=== PATIENT | female | born 1950 | race Caucasian/White ===

== ENCOUNTER → 2017-06-23 | Outpatient (CLI) | payer MEDICARE, OTHER | END | disposition home or self-care (01) | LOC: GMAL 10:31 | PROVIDERS: ATTEND Family Medicine | DX: D51.3 Other dietary vitamin B12 deficiency anemia (principal); E55.9 Vitamin D deficiency, unspecified ==

== ENCOUNTER → 2017-10-26 | Outpatient (CLI) | payer MEDICARE, OTHER | END | disposition home or self-care (01) | LOC: GMAL 11:43 | PROVIDERS: ATTEND Family Medicine | DX: L40.52 Psoriatic arthritis mutilans (principal) ==

== ENCOUNTER → 2017-12-23 | Outpatient (CLI) | payer MEDICARE, OTHER | LOC: GMAL 11:21 | PROVIDERS: ATTEND Family Medicine | DX: D51.3 Other dietary vitamin B12 deficiency anemia (principal); D53.9 Nutritional anemia, unspecified ==

== ENCOUNTER → 2018-01-18 | Outpatient (CLI) | payer MEDICARE, OTHER | LOC: GMAL 11:16 | PROVIDERS: ATTEND Family Medicine | DX: D53.9 Nutritional anemia, unspecified (principal) ==

== ENCOUNTER → 2018-02-20 | Outpatient (CLI) | payer MEDICARE, OTHER ==
--- NOTE | 2018-02-21 11:06 | MAM ---
EXAM DESCRIPTION: 3D Screening BILATERAL : Digital Mammography. CLINICAL HISTORY: 67 years Female ANNUAL SCREENING . No complaints. No family history of breast cancer. Postmenopausal. No HRT. COMPARISON: 2-D digital screening bilateral study 10/20/2016.. Report from prior examination also reviewed. TECHNIQUE: Bilateral CC and MLO projection full-field images, 3-D tomosynthesis digital mammographic technique. Also bilateral synthesized CC/ MLO full-field images. CAD not utilized. FINDINGS: The breast parenchymal density pattern is: Scattered areas of fibroglandular density. No skin thickening or nipple retraction bilateral solitary microcalcifications. Skin mole on the anterior medial left breast. No focal, stellate mass or density, focal asymmetry , and no suspicious microcalcifications bilaterally. Stable mammograms compared to prior study, taking into account differences in mammographic technique IMPRESSION: BI-RADS CATEGORY: 2 - BENIGN FINDINGS. FOLLOW UP: Routine digital bilateral screening, one year interval from February 2018. Written communication explaining the IMPRESSION and follow-up, will be mailed to the patient and referring health care provider. According to the [employer], yearly mammograms are recommended starting at age 40 and continuing as long as a woman is in good health. Any breast change noted on a breast self-exam should be reported promptly to the patient's healthcare provider. Breast MRI is recommended for women with an approximately 20-25% or greater lifetime risk of breast cancer, including women with a strong family history of breast or ovarian cancer and women who have been treated for Hodgkin's disease. A negative mammographic report should not delay tissue diagnosis in patients with significant clinical history or physical findings. Extremely dense breast tissue limits the sensitivity of digital mammography. Electronically signed by: Aniceto Galdamez MD 02/21/2018 11:05 AM CDT
== END | disposition home or self-care (01) ==
LOC: MAMMO 09:30
PROVIDERS: ATTEND Family Medicine
DX: Z12.31 Encounter for screening mammogram for malignant neoplasm of breast (principal)

== ENCOUNTER → 2018-05-18 | Outpatient (CLI) | payer MEDICARE, OTHER | LOC: GMAL 10:25 | PROVIDERS: ATTEND Family Medicine | DX: E55.9 Vitamin D deficiency, unspecified (principal) ==

== ENCOUNTER → 2018-08-18 | Outpatient (CLI) | payer MEDICARE, OTHER | LOC: GMAL 11:58 | PROVIDERS: ATTEND Family Medicine | DX: D51.3 Other dietary vitamin B12 deficiency anemia (principal); E55.9 Vitamin D deficiency, unspecified ==

== ENCOUNTER → 2019-02-28 | Outpatient (CLI) | payer MEDICARE, OTHER ==
--- NOTE | 2019-02-28 17:31 | MRI ---
EXAM DESCRIPTION: Brain w/wo Contrast: Magnetic Resonance Imaging. CLINICAL HISTORY: 68 years Female Delirium due to known physiological condition COMPARISON: None. TECHNIQUE: Multiplanar, high-field MRI, multiple conventional sequences, without and with gadolinium IV contrast. No adverse reactions. Multiple axial diffusion sequences. FINDINGS: Small foci of hyperintense FLAIR and T2-weighted signal in the periventricular white matter laterally abutting the frontal horns of the lateral ventricles. Also anterior and posterior left basal ganglia. Minimal foci in the remaining monreo radiata bilaterally also bilateral centrum semiovale bilaterally. No hemorrhage, mass effect, edema, abnormal contrast enhancement, or diffusion restriction. Normal signal in the right basal ganglia. No hemorrhage, no cerebral edema, no mass-effect. No diffusion restriction. Normal contrast enhancement. Normal signal in the brainstem and cerebellar hemispheres. No hemorrhage, no cerebral edema, no diffusion restriction. Normal contrast enhancement. Concordance of the diffusion and non-diffusion sequences with no evidence of acute or subacute infarction. Cortical sulci, ventricles, and other CSF spaces, and the subdural spaces are normally configured for the patient's age. No effacement or displacement. No midline shift. No extra-axial hemorrhage. Normal contrast enhancement. Normal flow signal void in the major vessels of the [place], and the venous sinuses. IACs are symmetric bilaterally. Normal signal in the bilateral mastoid air cells. No mass effect in the bilateral Cerebellopontine angles. Normal contrast enhancement. Pituitary gland occupies most of the sella. Normal contrast enhancement. Base of the cerebellar tonsils is at the level of the foramen magnum. No periosteal thickening in the paranasal sinuses. Right septal deviation. The bony calvarium is intact. IMPRESSION: 1. Findings in the periventricular white matter, monroe radiata, centrum semiovale, and left basal ganglia most likely related to aging or cerebral microvascular disease. No mass effect hemorrhage edema or abnormal contrast enhancement. Normal noncontrast MRI diffusion scan with no evidence of acute or subacute infarction or significant ischemia. 2. Minimal paranasal sinus disease. Electronically signed by: Aniceto Galdamez MD 02/28/2019 5:27 PM CDT
--- NOTE | 2019-03-02 13:58 | MAM ---
EXAM DESCRIPTION: 3D Screening BILATERAL : Digital Mammography. CLINICAL HISTORY: 68 years Female ANNUAL SCREENING . No complaints. No personal or family history of breast cancer. Childbirth. Postmenopausal 33 years. No HRT. Lifetime risk of developing breast cancer (Tyrer-Cuzick model)(%): 3.3. COMPARISON: Bilateral screening digital breast tomosynthesis 02/20/2018. TECHNIQUE: Bilateral CC and MLO projection full-field images, digital tomosynthesis mammographic technique. Bilateral digital 2-D full-field MLO images. CAD not available for tomosynthesis or 2-D images. FINDINGS: The breast parenchymal density pattern is: Scattered areas of fibroglandular density. No skin thickening or nipple retraction. No new focal, stellate mass or density, focal asymmetry , and no suspicious microcalcifications bilaterally Stable mammograms compared to prior study. IMPRESSION: BI-RADS CATEGORY: 1 - NEGATIVE FOLLOW UP: Routine digital bilateral screening, one year interval from February 2019. Written communication explaining the findings and follow-up, will be mailed to the patient and referring health care provider. According to the [employer], yearly mammograms are recommended starting at age 40 and continuing as long as a woman is in good health. Any breast change noted on a breast self-exam should be reported promptly to the patient's healthcare provider. Breast MRI is recommended for women with an approximately 20-25% or greater lifetime risk of breast cancer, including women with a strong family history of breast or ovarian cancer and women who have been treated for Hodgkin's disease. A negative mammographic report should not delay tissue diagnosis in patients with significant clinical history or physical findings. Extremely dense breast tissue limits the sensitivity of digital mammography. Electronically signed by: Aniceto Galdamez MD 03/02/2019 1:54 PM CDT
== END ==
LOC: MRI 09:00
PROVIDERS: ATTEND Specialist
DX: Z12.31 Encounter for screening mammogram for malignant neoplasm of breast (principal); F05 Delirium due to known physiological condition; J32.9 Chronic sinusitis, unspecified

== ENCOUNTER → 2019-12-18 | Outpatient (CLI) | payer MEDICARE, OTHER ==
--- NOTE | 2019-12-19 12:28 | US ---
EXAM DESCRIPTION: Bladder: ULTRASOUND. CLINICAL HISTORY: 69 years Female FREQUENCY OF MICTURITION COMPARISON: None Available. TECHNIQUE: Transcutaneous scanning: Sotomayor-scale and Doppler modes. FINDINGS: Prevoid bladder volume 88.6 mL. Essentially no residual urine after voiding. Doppler color of bladder showed no intravesicular ureteral jets. No extrinsic mass effect on the urinary bladder. Echogenicity within the bladder lumen, possible debris or mucosal abnormalities. IMPRESSION: Essentially complete emptying of bladder after voiding. Ureteral jets not seen in the bladder. No mass effect. Question of intrinsic mucosal abnormalities. Electronically signed by: Aniceto Galdamez MD 12/19/2019 12:27 PM [employer]
== END ==
LOC: US 09:30
PROVIDERS: ATTEND Family Medicine
DX: R35.0 Frequency of micturition (principal)

== ENCOUNTER → 2020-03-05 | Outpatient (CLI) | payer MEDICARE, OTHER | LOC: GMAL 11:46 | PROVIDERS: ATTEND Family Medicine | DX: D51.3 Other dietary vitamin B12 deficiency anemia (principal); E55.9 Vitamin D deficiency, unspecified; E11.9 Type 2 diabetes mellitus without complications; I10 Essential (primary) hypertension; M10.9 Gout, unspecified; E78.49 Other hyperlipidemia; Z79.891 Long term (current) use of opiate analgesic ==

== ENCOUNTER → 2020-07-28 | Outpatient (CLI) | payer MEDICARE, OTHER ==
--- NOTE | 2020-07-28 15:57 | MRI ---
EXAM DESCRIPTION: Brain w/o Contrast: MRI. CLINICAL HISTORY: DEMENTIA COMPARISON: MRI scan brain without and with gadolinium IV contrast February 2019. TECHNIQUE: Multiplanar, high-field MRI unit, multiple diffusion sequences, multiple conventional sequences without contrast. FINDINGS: Focal hyperintense FLAIR and T2-weighted signal in the periventricular white matter abutting the frontal horns of the lateral ventricles more left than right, stable since the prior study. Also increased signal in the bilateral periventricular monroe radiata frontal and parietal lobes. Hyperintense foci of signal in the subcortical white matter right parietal lobe in the anterior subcortical left occipital lobe. Stable since the prior study.. No hemorrhage, no cerebral edema, no midline shift.. Heterogeneous signal in the bilateral basal ganglia, with prominent perivascular spaces. Stable hyperintense FLAIR and T2-weighted signal in the head of the right caudate nucleus.. No hemorrhage, no cerebral edema, no mass-effect normal signal in the brainstem and cerebellar hemispheres.. Concordance of the diffusion and non-diffusion sequences with no diffusion restriction. Cortical sulci, ventricles, and other CSF spaces, and the subdural spaces are normally configured for patients age.. No effacement or displacement. No midline shift. No extra-axial hemorrhage. Normal flow signal void in the major vessels of the [place], and the venous sinuses. IACs are symmetric bilaterally. Normal signal in the bilateral mastoid air cells. No mass effect in the bilateral cerebellopontine angles. Pituitary gland occupies all of the sella. Base of the cerebellar tonsils is at the level of the foramen magnum. Large chuck bullosa in the left middle turbinate with deviation of the nasal passages and nasal septum to the right of midline. Minimal mucoperiosteal thickening.. The bony calvarium is intact. IMPRESSION: 1. Bilateral multifocal regions of abnormal white matter signal most likely related to cerebral microvascular disease and aging. No significant change compared to the prior study February 2019. No intra-axial hemorrhage mass effect or cerebral edema. No extra-axial hemorrhage or fluid. Abnormalities in the bilateral basal ganglia are stable. 2. Normal noncontrast MRI diffusion study with no evidence of acute or subacute infarction. Electronically signed by: Aniceto Galdamez MD 07/28/2020 3:55 PM CDT
== END ==
LOC: MRI 08:00
DX: G30.9 Alzheimer's disease, unspecified (principal); R90.82 White matter disease, unspecified

== ENCOUNTER → 2020-09-30 | Outpatient (CLI) | payer MEDICARE, OTHER | LOC: GMAL 10:32 | PROVIDERS: ATTEND Family Medicine | DX: D51.3 Other dietary vitamin B12 deficiency anemia (principal); E55.9 Vitamin D deficiency, unspecified; E11.9 Type 2 diabetes mellitus without complications; Z79.899 Other long term (current) drug therapy; E78.49 Other hyperlipidemia; E83.42 Hypomagnesemia ==